=== PATIENT | female | born 1935 | race Caucasian/White ===

== ENCOUNTER → 2017-05-04 | Outpatient (CLI) | payer MEDICARE ==
[~2017-05-04] MED LIST: AMLO-109 PO; ASPI-715 PO; ASPI81TA94 PO; BENA1TAB48 PO; CALC-661 PO; DEN60I SUBQ; DIA5 PO; EXF5/160PT PO; EZE10 PO; EZET10TA41 PO; HYDR-385 PO; LEVO75TA68 PO; LORA5SOL56 PO; METO100T20 PO; METXL50 PO; MULT-1085 PO; MULT-948 PO; MULT1CAP41 PO; NIT4 SL; OMEP20CA68 PO; OMEP40CA45 PO; POLY17PO25 PO; PROM-110 PO; ROSU20TA23 PO; VIT-7 PO; [UNRECOGNIZED DRUG - CODE] PO
--- NOTE | 2017-05-09 08:49 | RADIOLOGY IMAGING REPORT ---
FACILITY: [facility] PATIENT NAME: CINDY RABAGO : [id number] MR: [id number] V: [id number] EXAM DATE: ORDERING PHYSICIAN: GIOVANA WELCH TECHNOLOGIST: Jessica Leblanc PROCEDURE:BILATERAL DIGITAL SCREENING MAMMOGRAM WITH CAD ASSISTED INTERPRETATION AND 3D BREAST TOMOSYNTHESIS. COMPARISON:Prior mammograms dated 04/12/16, 03/24/15, 03/18/14, 03/01/13, 02/29/12 and 02/21/11. INDICATIONS:SCREENING FINDINGS: Moderate amount of fibroglandular tissue is seen throughout the breasts. The parenchymal pattern has remained stable when allowing for difference in mammographic technique and patient positioning. There is no evidence of malignant appearing mass, malignant appearing calcification or other secondary sign of malignancy in either breast. DIAGNOSTIC CATEGORY 1--NEGATIVE. RECOMMENDATIONS: ROUTINE MAMMOGRAM AND CLINICAL EVALUATION. IMPRESSION: Bi-RADS 1: No significant abnormality is seen. Images were reviewed with R2CAD and 3D breast tomosynthesis. Dictated by: Melissa Hooks M.D. on 05/04/2017 at 14:21 Transcribed by: HOWARD on 05/04/2017 at 19:54 Approved by: Melissa Hooks M.D. on 05/09/2017 at 8:48 [facility]
== END ==
LOC: MAMO 01:15
PROVIDERS: ATTEND Family Medicine
DX: Z12.31 Encounter for screening mammogram for malignant neoplasm of breast (principal)
CPT/HCPCS: 77063; 77067

== ENCOUNTER → 2017-06-02 | Outpatient (CLI) | payer MEDICARE ==
[~2017-06-02] MED LIST changes: +ASPI-1471 PO; +CALC-941 PO; +METF-410 PO; +MULT-1101 PO; +MULT-989 PO; +OXYGENHOME INH; +PNEU0.5D3 IM
== END ==
LOC: LAB 10:04
PROVIDERS: ATTEND Internal Medicine
DX: E03.9 Hypothyroidism, unspecified (principal); R73.01 Impaired fasting glucose; I10 Essential (primary) hypertension; E78.2 Mixed hyperlipidemia
CPT/HCPCS: 36415; 82040; 82247; 82310; 82374; 82435; 82465; 82565; 82947; 83036; 83718; 84075; 84132; 84155; 84295; 84443; 84450; 84460; 84478; 84520

== ENCOUNTER 2017-06-13 14:17 | Outpatient (RCR) | payer MEDICARE ==
[~2017-06-13] VITALS: Ht 160 cm; Wt 59.4 kg
--- NOTE | 2017-06-13 17:21 | Medical Nutrition Therapy ---
Nutrition Anthropometrics Height (Inches): 63.00 Height (Calculated Centimeters: 160.086686 Weight (Pounds): 131 Weight (Calculated Kilograms): 59.519564 Gildardo Nutrition Score: Gildardo Nutrition Risk Score: Dietary Referral Nutrition Risk Factors: Nutrition Risk Comment: Physical Findings Physical Appearance: WNR Skin Appearance Skin Appearance: Edema Edema Location Modifier: Edema Location: Type of Edema: Degree of Edema: Gastrointestinal Symptoms GI Symtoms: Tube Present: Bowel Sounds: Recent Bowel Pattern: Stool Characteristics: Nutrition/Food History Good Skipped Meals: No Alcohol Use: Occassional Exercise: Yes Nutritional Education Nutrition Education Topic: Diabetic Nutrition Nutrition Monitoring & Eval RD Patient Assessment Time: [address] Assessment Type: RD Education Nutritional Comment: Pt recently diagnosed T2DM with A1c of 6.6%. Pt educated on importance of carbohydrate control at meals/snacks. Discussed meal plan and label reading. Pt able to use label reading and knowledge of basic carb counting to plan simple meals with assistance. Pt made plans to attend diabetes classes. I personally spent a total of 60 minutes educating/counseling patient regarding T2DM and nutrtion therapy in a individual setting. See education section and my note above for details. Copies To Copies to: SALOMÓN DAVILA MD, DIANNE Jun 13, 2017 17:21
--- NOTE | 2017-07-13 15:07 | Medical Nutrition Therapy ---
Nutritional Education Nutrition Education Topic: Diabetic Nutrition Learning Readiness: Interested Teaching Methods: Discussion, Handout, Demonstration Response to Teaching: Verbalize understanding Teaching Recipient: Patient Nutrition Counseling: Provided group diabetes education on nutrition. Reviewed: process of digestion; function of CHO, protein and fat; reading labels, portion sizes; heart healthy intake; eating out, alcohol. Spent time reviewing pt's plate method diet and re-emphasized pt to limit CHO to 1c/meal Nutrition Monitoring & Eval RD Patient Assessment Time: [address] Assessment Type: RD Education Nutritional Comment: Provided 60 minutes diabetes education in a group setting focusing on nutrition. Copies To Copies to: SALOMÓN DAVILA MD, BETH Jul 13, 2017 15:07
[2017-07-17] MEDS ORDERED: LEVO75TA68 PO (11:31)
[2017-07-17] MEDS ORDERED: METO100T20 PO (11:31)
== END 2017-07-18 ==
LOC: DIET 14:17
PROVIDERS: ATTEND Internal Medicine
DX: E11.9 Type 2 diabetes mellitus without complications (principal)
CPT/HCPCS: G0108; G0109

== ENCOUNTER 2017-07-26 08:00 | Outpatient (RCR) | payer MEDICARE ==
[~2017-07-26 08:00] MED LIST changes: -METF-410 PO; +METF-411 PO
--- NOTE | 2017-07-26 18:09 | Medical Nutrition Therapy ---
Nutrition Anthropometrics Height (Inches): 63.00 Height (Calculated Centimeters: 160.308847 Weight (Pounds): 131 Weight (Calculated Kilograms): 59.535798 Gildardo Nutrition Score: Gildardo Nutrition Risk Score: Dietary Referral Nutrition Risk Factors: Nutrition Risk Comment: Physical Findings Physical Appearance: WNR Skin Appearance Skin Appearance: Edema Edema Location Modifier: Edema Location: Type of Edema: Degree of Edema: Gastrointestinal Symptoms GI Symtoms: Tube Present: Bowel Sounds: Recent Bowel Pattern: Stool Characteristics: Nutritional Education Nutrition Education Topic: Other Learning Barriers: Cognitive Learning Readiness: Interested Teaching Methods: Discussion, Handout, Demonstration Response to Teaching: Verbalize understanding, Reinforcement needed Nutrition Monitoring & Eval RD Patient Assessment Time: [address] Assessment Type: RD Education Nutritional Comment: Provided 60 minutes diabetes education in a group setting focusing on nutrition. 07/26/17 Pt recently diagnosed with T2DM. Pt instructed on Living with Diabetes topics including foot care, production superintendent hydro complications, exercise, hypoglycemia, sick day care, etc. Pt appears interested in diabetes topics and able to answer questions regarding topics covered. I personally spent a total of 60 minutes educating/counseling patient regarding diabetes self-management in a group setting. See education section and my note above for details. Copies To Copies to: SALOMÓN DAVILA MD, DIANNE Jul 26, 2017 18:09
== END 2017-08-30 ==
LOC: DIET 08:00
PROVIDERS: ATTEND Internal Medicine
DX: Z71.3 Dietary counseling and surveillance (principal); E11.9 Type 2 diabetes mellitus without complications
CPT/HCPCS: G0109 ×4

== ENCOUNTER → 2017-11-17 | Outpatient (CLI) | payer MEDICARE | LOC: LAB 09:37 | PROVIDERS: ATTEND Internal Medicine | DX: E11.9 Type 2 diabetes mellitus without complications (principal); E03.9 Hypothyroidism, unspecified; E78.2 Mixed hyperlipidemia | CPT/HCPCS: 36415; 82040; 82247; 82310; 82374; 82435; 82465; 82565; 82947; 83036; 83718; 84075; 84132; 84155; 84295; 84443; 84450; 84460; 84478; 84520 ==

== ENCOUNTER → 2018-04-02 | Outpatient (CLI) | payer MEDICARE ==
[~2018-04-02] MED LIST changes: -METF-411 PO; +METF-450 PO; +SERT-184 PO
== END ==
LOC: LAB 09:57
PROVIDERS: ATTEND Internal Medicine
DX: E11.9 Type 2 diabetes mellitus without complications (principal); E03.9 Hypothyroidism, unspecified; R73.01 Impaired fasting glucose; E78.2 Mixed hyperlipidemia; I10 Essential (primary) hypertension
CPT/HCPCS: 36415; 82040; 82247; 82310; 82374; 82435; 82465; 82565; 82947; 83036; 83718; 84075; 84132; 84155; 84295; 84443; 84450; 84460; 84478; 84520

== ENCOUNTER → 2018-05-21 | Outpatient (CLI) | payer MEDICARE ==
[~2018-05-21] MED LIST changes: +LEVO50TA86 PO; +METF500T4 PO
[2018-05-21 11:33] LABS: PLATELET COUNT, AUTOMATED 214 K/uL (150-450)
== END ==
LOC: LAB 10:49
PROVIDERS: ATTEND Internal Medicine
DX: E03.9 Hypothyroidism, unspecified (principal); I25.10 Atherosclerotic heart disease of native coronary artery without angina pectoris; E11.9 Type 2 diabetes mellitus without complications; I10 Essential (primary) hypertension; E78.2 Mixed hyperlipidemia
CPT/HCPCS: 36415; 81001; 82040; 82247; 82310; 82374; 82435; 82565; 82947; 83036; 84075; 84132; 84155; 84295; 84439; 84443; 84450; 84460; 84520; 85025

== ENCOUNTER → 2018-05-22 | Outpatient (CLI) | payer MEDICARE ==
--- NOTE | 2018-05-23 08:33 | RADIOLOGY IMAGING REPORT ---
FACILITY: [facility] PATIENT NAME: CINDY RABAGO : [id number] MR: [id number] V: [id number] EXAM DATE: [id number] ORDERING PHYSICIAN: SALOMÓN DAVILA TECHNOLOGIST: Rocio Hernandez PROCEDURE:BILATERAL DIGITAL SCREENING MAMMOGRAM WITH CAD ASSISTED INTERPRETATION & 3D TOMOSYNTHESIS COMPARISON:Prior mammograms dated 05/04/17, 04/12/16, 04/03/15, 03/18/14, 03/01/13, 02/29/12 INDICATIONS:SCREENING FINDINGS: The breasts are heterogeneously dense which can obscure small masses. The parenchymal pattern has remained stable allowing for difference in mammographic technique & patient positioning. DIAGNOSTIC CATEGORY 1--NEGATIVE. RECOMMENDATIONS: ROUTINE MAMMOGRAM AND CLINICAL EVALUATION. IMPRESSION: BIRADS 1: Negative. No significant abnormality is seen. Dictated by: Melissa Hooks M.D. on 05/22/2018 at 16:27 Transcribed by: MARLA on 05/23/2018 at 7:18 Approved by: Melissa Hooks M.D. on 05/23/2018 at 8:32 [facility]
== END ==
LOC: MAMO 00:33
PROVIDERS: ATTEND Internal Medicine
DX: Z12.31 Encounter for screening mammogram for malignant neoplasm of breast (principal)
CPT/HCPCS: 77063; 77067

== ENCOUNTER → 2018-06-18 | Outpatient (CLI) | payer MEDICARE ==
[2018-06-18 12:18] LABS: PLATELET COUNT, AUTOMATED 205 K/uL (150-450)
== END ==
LOC: LAB 11:07
PROVIDERS: ATTEND Internal Medicine
DX: E03.9 Hypothyroidism, unspecified (principal); I25.10 Atherosclerotic heart disease of native coronary artery without angina pectoris; E11.9 Type 2 diabetes mellitus without complications; I10 Essential (primary) hypertension
CPT/HCPCS: 36415; 82040; 82247; 82310; 82374; 82435; 82565; 82947; 83036; 84075; 84132; 84155; 84295; 84439; 84443; 84450; 84460; 84520; 85025

== ENCOUNTER 2018-09-12 14:47 | Emergency (ER) | payer OTHER, MEDICARE ==
[~2018-09-12 14:47] MED LIST changes: -MULT-1101 PO; +MULT-123 PO; +ROSU20TA24 PO
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
[2018-09-12] MEDS ORDERED: DIPHTH/TETANUS/ACEL. PERTUSSIS IM ONLY ONE (15:35)
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
[2018-09-12 17:00] VITALS: BP 118/67
[2018-09-12] MEDS ORDERED: METOPROLOL TART 5 MG/5 ML VIAL IVP ONE (17:00)
== END 2018-09-12 17:20 | disposition home or self-care (01) ==
LOC: ER 15:16
DX: S52.022A Displaced fracture of olecranon process without intraarticular extension of left ulna, initial encounter for closed fracture (principal); S40.022A Contusion of left upper arm, initial encounter
CPT/HCPCS: 71046; 72040; 73030; 73060; 73070; 73090; 73100; 73130; 90471; 90715; 99284; A4565

== ENCOUNTER → 2018-11-20 | Outpatient (CLI) | payer MEDICARE ==
[~2018-11-20] MED LIST changes: +AZIT-17 PO; +BENZ100C4 PO
[2018-11-20 10:02] LABS: PLATELET COUNT, AUTOMATED 253 K/uL (150-450)
== END ==
LOC: LAB 09:37
PROVIDERS: ATTEND Internal Medicine
DX: E03.9 Hypothyroidism, unspecified (principal); I25.10 Atherosclerotic heart disease of native coronary artery without angina pectoris; E11.9 Type 2 diabetes mellitus without complications; R63.4 Abnormal weight loss; E78.2 Mixed hyperlipidemia
CPT/HCPCS: 36415; 81001; 82040; 82247; 82310; 82374; 82435; 82465; 82565; 82947; 83036; 83718; 84075; 84132; 84155; 84295; 84439; 84443; 84450; 84460; 84478; 84520; 85025